=== PATIENT | female | born 1960 | race Caucasian/White ===

== ENCOUNTER 2021-11-13 12:50 | Outpatient (CLI) | payer SELFPAY | END 2021-11-13 12:51 | disposition home or self-care (01) | LOC: AMB 01-05 12:06 | PROVIDERS: Visit Provider Emergency Medicine Emergency Medical Services | DX: R42 Dizziness and giddiness (principal); R51.9 Headache, unspecified; R11.0 Nausea | CPT/HCPCS: A0425; A0427 ==